=== PATIENT | male | born 1960 | race Caucasian/White ===

== ENCOUNTER → 2017-01-27 | Day surgery (SDC) | payer OTHER | END | disposition home or self-care (01) | LOC: SDCH 07:28 | DX: Z12.11 Encounter for screening for malignant neoplasm of colon (principal); D12.6 Benign neoplasm of colon, unspecified; K57.30 Diverticulosis of large intestine without perforation or abscess without bleeding; I10 Essential (primary) hypertension; E11.9 Type 2 diabetes mellitus without complications; Z79.899 Other long term (current) drug therapy | CPT/HCPCS: J2704 ==